=== PATIENT | male | born 1945 | race Caucasian/White ===

== ENCOUNTER → 2016-05-21 | Outpatient (CLI) | payer MEDICARE, OTHER ==
[~2016-05-21] MED LIST: ALLO300T2 PO; AMLO5TAB2 PO; ASPI325T5 PO; FOLI1 PO; LIPI80TA16 PO
[2016-05-21 09:02] LABS: BICARBONATE 26.6 MEQ/L (21.0-32.0); POTASSIUM 3.8 MEQ/L (3.5-5.1)
[2016-05-21 09:06] LABS: HDL CHOLESTEROL 57.3 MG/DL (40.0-60.0)
== END ==
LOC: CLAB 08:02
PROVIDERS: ATTEND Family Medicine
DX: E78.5 Hyperlipidemia, unspecified (principal)
CPT/HCPCS: 36415; 80048; 80061